=== PATIENT | male | born 2000 | race Two or more races ===

== ENCOUNTER 2020-07-28 09:59 | Emergency (ER) | payer OTHER ==
[~2020-07-28] VITALS: Ht 172.7 cm; Wt 65.9 kg
[2020-07-28 10:45] LABS: COVID AG,FIA SOURCE NASOPHARYNGEAL
[2020-07-28 12:33] VITALS: BP 138/75
== END 2020-07-28 12:36 | disposition home or self-care (01) ==
LOC: EMS 09:59
DX: R05 Cough (principal); Z20.822 Contact with and (suspected) exposure to COVID-19
CPT/HCPCS: 87426; 71045-TC